=== PATIENT | female | born 1955 ===

== ENCOUNTER 2020-07-19 10:31 | Outpatient (CLI) | payer MEDICARE | END 2020-07-19 10:32 | disposition home or self-care (01) | LOC: BICMAMMO 10:31 | PROVIDERS: ATTEND Nurse Practitioner Family | DX: Z13.820 Encounter for screening for osteoporosis (principal); M81.0 Age-related osteoporosis without current pathological fracture; M85.88 Other specified disorders of bone density and structure, other site | CPT/HCPCS: 77080 ==